=== PATIENT | male | born 1965 | race African-American/Black ===

== ENCOUNTER 2020-05-23 01:20 | Outpatient (CLI) | payer MEDICAID | END 2020-05-23 01:21 | disposition critical access hospital (66) | LOC: EMS 01:20 | PROVIDERS: ATTEND Surgery | DX: R22.0 Localized swelling, mass and lump, head (principal) | CPT/HCPCS: A0425; A0429; A0999 ==

== ENCOUNTER 2020-05-23 01:41 | Emergency (ER) | payer MEDICAID ==
[2020-05-23] MEDS ORDERED: ACETAMINOPHEN 325 MG TABLET PO STA (02:07)
[2020-05-23] MEDS ORDERED: IBUPROFEN 600 MG TABLET PO STA (02:07)
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
[2020-05-23 04:23] VITALS: BP 144/90
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
== END 2020-05-23 04:22 | disposition home or self-care (01) ==
LOC: EDUNIT# → ED 01:41
DX: S00.03XA Contusion of scalp, initial encounter (principal); S10.93XA Contusion of unspecified part of neck, initial encounter; S00.11XA Contusion of right eyelid and periocular area, initial encounter; Y04.2XXA Assault by strike against or bumped into by another person, initial encounter; Y93.01 Activity, walking, marching and hiking; Y92.410 Unspecified street and highway as the place of occurrence of the external cause
CPT/HCPCS: 70450; 70486; 99283; 99284; A9270

== ENCOUNTER 2020-09-27 16:23 | Emergency (ER) | payer MEDICAID ==
--- NOTE | 2020-09-27 16:55 | ED Physician Documentation ---
History of Present Illness - Stated complaint Stated Complaint: DIARRHEA/BODY ACHES - Chief complaint Chief Complaint: Abd Pain - Additonal information Additional information: 54-year-old gentleman presents the emergency department for evaluation of generalized fatigue myalgias diarrhea ongoing for about a week. He does report that his stools have become increasingly dark though not melanic. He also reports that 2 days ago when he coughed he coughed up about a teaspoon of bright red blood. This gentleman has no history of recent cough or congestion. He has no history of heart or lung disease. He does have high risk social behaviors that include mood methamphetamine use smoking only no injection, and heavy alcohol use. He does also reported psychiatric history for which he takes olanzapine and various antidepressants. Review of Systems Constitutional: reports: Fever, Chills, Myalgias Eyes: reports: Reviewed and negative Ears: reports: Reviewed and negative Nose: reports: Reviewed and negative Throat: reports: Reviewed and negative Cardiac: reports: Reviewed and negative Respiratory: reports: Hemoptysis. denies: Dyspnea, Cough, Wheezing GI: reports: Abdominal Pain, Diarrhea. denies: Nausea, Vomiting, Constipation, Bloody / black stool : denies: Dysuria, Frequency, Hesitancy Skin: reports: Rash, Lesions PD PAST MEDICAL HISTORY - Past Medical History Neuro: None Endocrine/Autoimmune: None - Past Surgical History Past Surgical History: No - Present Medications Home Medications: Ambulatory Orders Medication Instructions Recorded Confirmed No Known Home Medications 05/23/20 05/23/20 - Allergies Allergies/Adverse Reactions: Allergies Allergy/AdvReac Type Severity Reaction Status Date / Time No Known Drug Allergies Allergy Verified 05/23/20 02:09 - Social History Does the pt smoke?: No Smoking Status: Current some day smoker PD ED PE EXPANDED - General General: Alert, No acute distress, Well developed/nourished - Cardiac Cardiac: Regular Rate, Radial strong equal, Pedal strong equal, Cap refill < 2 sec - Respiratory Respiratory: Clear to ausultation annelise. No: Distress, Labored - Abdomen Abdomen: Normal Bowel sounds, Tender to palpation - Derm Derm: Normal color, Warm and dry - Extremities Extremities: Normal, Pedal Pulses Present. No: Deformity, Tenderness, Pedal edema bilateral - Neuro Neuro: Alert and Oriented X 3, CNII-XII intact - GCS Eye Opening: Spontaneous Motor: Obeys Commands Verbal: Oriented Total: 15 Results - Vitals Vitals: Vital Signs - 24 hr 09/27/20 16:30 Temperature 36.8 C Heart Rate 90 Respiratory 18 Rate Blood Pressure 145/96 H O2 Saturation 96 Oxygen O2 Source Room air - Labs Labs: Laboratory Tests 09/27/20 09/27/20 09/27/20 16:43 16:43 16:47 WBC 4.6 L RBC 4.10 L Hgb 13.3 L Hct 39.3 L MCV 95.9 H MCH 32.4 H MCHC 33.8 RDW 12.2 Plt Count 338 MPV 8.7 Neut # (Auto) 3.0 Lymph # (Auto) 1.1 L Hawkins # (Auto) 0.5 Eos # (Auto) 0.1 Baso # (Auto) 0.0 Absolute Nucleated RBC 0.00 Nucleated RBC % 0.0 D-Dimer 356.4 H Sodium 132 L Potassium 4.1 Chloride 101 Carbon Dioxide 24 Anion Gap 7.0 BUN 14 Creatinine 0.8 Estimated GFR (MDRD) 122 Glucose 100 Calcium 8.7 Total Bilirubin 1.2 H AST 28 ALT 23 Alkaline Phosphatase 63 Total Protein 7.7 Albumin 4.0 Globulin 3.7 Albumin/Globulin Ratio 1.1 Lipase 26 Urine Color Urine Clarity Urine pH Ur Specific Maud Urine Protein Urine Glucose (UA) Urine Ketones Urine Occult Blood Urine Nitrite Urine Bilirubin Urine Urobilinogen Ur Leukocyte Esterase Ur Microscopic Review Urine Culture Comments 09/27/20 16:54 WBC RBC Hgb Hct MCV MCH MCHC RDW Plt Count MPV Neut # (Auto) Lymph # (Auto) Hawkins # (Auto) Eos # (Auto) Baso # (Auto) Absolute Nucleated RBC Nucleated RBC % D-Dimer Sodium Potassium Chloride Carbon Dioxide Anion Gap BUN Creatinine Estimated GFR (MDRD) Glucose Calcium Total Bilirubin AST ALT Alkaline Phosphatase Total Protein Albumin Globulin Albumin/Globulin Ratio Lipase Urine Color YELLOW Urine Clarity CLEAR Urine pH 6.0 Ur Specific Maud 1.025 Urine Protein NEGATIVE Urine Glucose (UA) NEGATIVE Urine Ketones NEGATIVE Urine Occult Blood NEGATIVE Urine Nitrite NEGATIVE Urine Bilirubin NEGATIVE Urine Urobilinogen 0.2 (NORMAL) Ur Leukocyte Esterase NEGATIVE Ur Microscopic Review NOT INDICATED Urine Culture Comments NOT INDICATED - Rads (name of study) CXR Radiology: Final report received (no acute cardiopulmonary process) CT chest Radiology: Final report received (Unremarkable CT angiography of the chest without evidence of pulmonary embolism, aortic dissection or aneurysm.) PD MEDICAL DECISION MAKING - ED course Complexity details: reviewed results, re-evaluated patient, d/w patient ED course: 54-year-old gentleman presents the emergency department for evaluation of intermittent diarrhea for about the last week generalized chills myalgias and then a one-time episode of hemoptysis 2 days ago. This gentleman does have a high risk social history that includes alcohol abuse as well as methamphetamine abuse. On examination he however appears rather well with no significant cardiopulmonary or abdominal findings. Screening labs reveal no leukocytosis. He has preserved LFTs and renal function. normal CBC without anemia. Denies hemataemsis or melena. Given the reported hemoptysis a D-dimer was obtained and it was elevated therefore CT pulmonary angio was completed. Reassuringly there were no worrisome findings to suggest pneumonia aneurysm or pulmonary embolus. COVID-19 screen is pending on this patient. He is advised to return home. Recommend judicious fluids occasional Imodium as needed for diarrhea and emergent return precautions were discussed. Departure - Departure Disposition: 01 Home, Self Care Clinical Impression: Hemoptysis, unspecified Diarrhea Qualifiers: Diarrhea type: unspecified type Qualified Code(s): R19.7 - Diarrhea, unspecified Condition: Stable Record reviewed to determine appropriate education?: Yes Instructions: ED Diet Brat Expanded Ch Follow-Up: MICAELA STERLING PA-C [Primary Care Provider] - Comments: Ananda you are seen in the emergency department today for some diarrhea over the last week, fevers chills as well as 1 episode of bloody sputum after coughing. Your screening labs were all essentially normal. However as we did discuss your D-dimer which is a test that can be used to evaluate whether somebody is at risk for forming clots abnormally was elevated. We did do a CAT scan of your chest and no pneumonia was found. There is no pulmonary embolus or aneurysm. I do recommend that you remain home drink plenty of fluids and get lots of rest. You can occasionally take Imodium for diarrhea. Return to the emergency department for worsening symptoms, sudden shortness of air or chest pain. You have a Covid test pending. You need to self quarantine until the result is done and negative. Do not leave your house. Do not get near anybody. The results should be done in 48 to 72 hours. We will call with a positive result, the fastest way to get a negative result for confirmation though is to go to the hospital website at [email or web address], click on the my [email or web address] tab and sign up for the patient portal. If any friends or family get sick and would like to have a Covid test done, but do not have signs or symptoms that would necessitate being hospitalized, we encourage testing through our coronavirus swabbing station, call [phone] to schedule an appointment.
[2020-09-27 16:57] LABS: BASOPHILS % (AUTO) 0.4 %; EOSINOPHILS # (AUTO) 0.1 10^3/uL (0.0-0.7); EOSINOPHILS % (AUTO) 1.5 %; HCT - HEMATOCRIT 39.3 % (42.0-52.0); HGB - HEMOGLOBIN 13.3 g/dL (14.0-18.0); LYMPHOCYTES # (AUTO) 1.1 10^3/uL (1.5-3.5); LYMPHOCYTES % (AUTO) 23.6 %; MEAN CORPUSCULAR HEMOGLOBIN 32.4 pg (27.0-31.0); MEAN CORPUSCULAR HGB CONC 33.8 g/dL (32.0-36.0); MEAN CORPUSCULAR VOLUME 95.9 fL (80.0-94.0); MEAN PLATELET VOLUME 8.7 fL (7.4-11.4); MONOCYTES # (AUTO) 0.5 10^3/uL (0.0-1.0); MONOCYTES % (AUTO) 10.4 %; NEUTROPHILS % (AUTO) 63.9 %; PLT - PLATELET COUNT 338 10^3/uL (130-450); RED CELL DISTRIBUTION WIDTH 12.2 % (12.0-15.0); WHITE BLOOD COUNT 4.6 x10^3/uL (4.8-10.8)
[2020-09-27 17:06] LABS: BILIRUBIN,URINE NEGATIVE (NEGATIVE); GLUCOSE, URINE (UA) NEGATIVE (NEGATIVE); KETONES,URINE (UA) NEGATIVE (NEGATIVE); LEUKOCYTE ESTERASE, URINE NEGATIVE (NEGATIVE); NITRITE,URINE NEGATIVE (NEGATIVE); OCCULT BLOOD,URINE NEGATIVE (NEGATIVE); PROTEIN,URINE NEGATIVE (NEGATIVE); UROBILINOGEN,URINE 0.2 (NORMAL) E.U./dL (NORMAL)
[2020-09-27 17:06] LABS: ALBUMIN/GLOBULIN RATIO 1.1 (1.0-2.2); BILIRUBIN,TOTAL 1.2 mg/dL (0.2-1.0); CALCIUM 8.7 mg/dL (8.5-10.3); CREATININE 0.8 mg/dL (0.6-1.2); POTASSIUM 4.1 mmol/L (3.5-5.0); TOTAL PROTEIN 7.7 g/dL (6.7-8.2)
--- NOTE | 2020-09-27 17:10 | XRAY Report ---
PROCEDURE: Chest 1 View X-Ray INDICATIONS: hemoptysis TECHNIQUE: One view of the chest was acquired. COMPARISON: None FINDINGS: Surgical changes and devices: None. Lungs and pleura: No pleural effusions or pneumothorax. Lungs are clear. Mediastinum: Mediastinal contours appear normal. Heart size is normal. Bones and chest wall: No suspicious bony lesions. Overlying soft tissues appear unremarkable. IMPRESSION: No acute cardiopulmonary disease process. Reviewed by: Esperanza El MD, PhD on 09/27/2020 5:08 PM PDT Approved by: Esperanza El MD, PhD on 09/27/2020 5:08 PM PDT Station ID: [id number]
[2020-09-27 17:14] LABS: CLARITY,URINE CLEAR (CLEAR)
[2020-09-27] MEDS ORDERED: IOVERSOL 320 100 ML VIAL IVP ONE ×2 (17:30→18:06)
--- NOTE | 2020-09-27 18:29 | CT Report ---
PROCEDURE: ANGIO CHEST W/WO INDICATIONS: hemoptysis, elevated D-dimer CONTRAST: IV CONTRAST: Optiray 320 ml: 80 PO CONTRAST: *NO PO CONTRAST TECHNIQUE: After the administration of intravenous contrast, 2 mm thick sections acquired from the pulmonary api helena to the posterior costophrenic angles. 3-dimensional maximum intensity projection (MIP) coronal a nd sagittal reformats were then acquired through the thorax. For radiation dose reduction, the follow ing was used: automated exposure control, adjustment of mA and/or kV according to patient size. COMPARISON: None FINDINGS: Image quality: Excellent. Pulmonary arteries: Pulmonary arteries are normal in size, and demonstrate no intraluminal filling d efects to suggest central pulmonary embolism. Lungs and pleura: Lungs are clear. No pleural effusions or pneumothorax. Central and peripheral ai rways are patent. Mediastinum: Heart size is normal, without pericardial effusion. No mediastinal or hilar adenopathy . Thoracic aorta is normal in caliber and enhancement. Esophagus is normal in caliber, without hiat al hernia. Bones and chest wall: No suspicious bony lesions. Ribs and thoracic spine appear intact throughout. No axillary or supraclavicular adenopathy. The thyroid is normal in size and there are no incident al findings. Abdomen: Visualized upper abdominal solid organs appear normal in the early arterial phase of enhanc ement. IMPRESSION: Unremarkable CT angiography of chest without evidence of pulmonary embolism, aortic dissection or ane urysm. Reviewed by: Bonifacio Mohan MD on 09/27/2020 5:28 PM [facility] Approved by: Bonifacio Mohan MD on 09/27/2020 5:28 PM [facility] Station ID: [id number]
[2020-09-27 19:09] VITALS: BP 140/88
== END 2020-09-27 19:09 | disposition home or self-care (01) ==
LOC: ED 16:23
DX: R04.2 Hemoptysis (principal); R19.7 Diarrhea, unspecified; R79.1 Abnormal coagulation profile; F10.10 Alcohol abuse, uncomplicated; F15.10 Other stimulant abuse, uncomplicated; F17.200 Nicotine dependence, unspecified, uncomplicated; Z20.822 Contact with and (suspected) exposure to COVID-19
CPT/HCPCS: 36415; 71045; 71275; 80053; 81003; 83690; 85025; 85379; 87635; 99284; Q9967; 81001; 87086

== ENCOUNTER 2020-11-25 08:00 | Outpatient (CLI) | payer MEDICAID ==
[2020-11-25 16:28] LABS: BILIRUBIN,URINE NEGATIVE (NEGATIVE); GLUCOSE, URINE (UA) NEGATIVE (NEGATIVE); KETONES,URINE (UA) NEGATIVE (NEGATIVE); LEUKOCYTE ESTERASE, URINE NEGATIVE (NEGATIVE); NITRITE,URINE NEGATIVE (NEGATIVE); OCCULT BLOOD,URINE NEGATIVE (NEGATIVE); PROTEIN,URINE NEGATIVE (NEGATIVE); UROBILINOGEN,URINE 0.2 (NORMAL) E.U./dL (NORMAL)
[2020-11-25 16:32] LABS: BACTERIA,URINE None Seen /HPF (None Seen); CLARITY,URINE CLEAR (CLEAR); RBC,URINE 0-5 /HPF (0-5); SQUAMOUS EPITHELIAL CELL,UR RARE Squamous (<= Few); WBC,URINE 0-3 /HPF (0-3)
[2020-11-25 20:49] LABS: CHLAMYDIA TRACHOMATIS DNA NEGATIVE (NEGATIVE); NEISSERIA GONORRHOEAE DNA NEGATIVE (NEGATIVE)
== END 2020-11-25 23:59 | disposition home or self-care (01) ==
LOC: LAB.N 08:00
PROVIDERS: ATTEND Family Medicine
DX: R30.0 Dysuria (principal); Z11.3 Encounter for screening for infections with a predominantly sexual mode of transmission
CPT/HCPCS: 81001; 87086; 87491; 87591; 87661

== ENCOUNTER → 2021-03-08 | Outpatient (CLI) | payer MEDICAID ==
[2021-03-08 20:39] LABS: CHLAMYDIA TRACHOMATIS DNA NEGATIVE (NEGATIVE); NEISSERIA GONORRHOEAE DNA NEGATIVE (NEGATIVE)
== END ==
LOC: LAB.R 08:00
PROVIDERS: ATTEND Registered Nurse
DX: A54.9 Gonococcal infection, unspecified (principal)
CPT/HCPCS: 87086; 87181; 87491; 87591; 87661